=== PATIENT | female | born 2000 | race African-American/Black ===

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

== ENCOUNTER 2024-03-11 07:14 | Emergency (ER) | payer BC, MEDICAID ==
[~2024-03-11] VITALS: Ht 177.8 cm; Wt 70.0 kg
[2024-03-11 07:17] VITALS: O2SAT 99
[2024-03-11] MEDS: ONDANSETRON HCL 4MG/2ML INJ IV ONE (08:15)
[2024-03-11] MEDS: SODIUM CHLORIDE 0.9% 1,000 ML IV ONE (08:15)
[2024-03-11] MEDS: KETOROLAC 30MG/ML VIAL IV ONE (08:15)
[2024-03-11 08:17] LABS: BASOPHILS % 0.5 % (0.0-2.0); DIFFERENTIAL COMMENT 0; EOSINOPHILS % 0.4 % (0.0-5.0); HEMATOCRIT. 32.3 % (36.0-48.0); HEMOGLOBIN. 10.1 g/dL (12.0-16.0); LYMPHOCYTES % 28.5 % (20.0-50.0); MEAN CORPUSCULAR HEMOGLOBIN 24.6 pg (28.0-32.0); MEAN CORPUSCULAR HGB CONC 31.2 g/dL (31.0-37.0); MEAN CORPUSCULAR VOLUME 78.7 fL (81.0-99.0); MONOCYTES % 6.7 % (2.0-8.0); NEUTROPHILS % 63.9 % (40.0-76.0); PLATELET 292 x1000/uL (130-400); RED CELL DISTRIBUTION WIDTH 15.5 % (11.6-14.6); WHITE BLOOD COUNT 6.8 x1000/uL (4.5-11.0)
[2024-03-11 08:38] LABS: ALANINE AMINOTRANSFERASE 17 IU/L (10-49); ALBUMIN 4.4 g/dL (3.2-4.8); ASPARTATE AMINOTRANSFERASE 24 IU/L (<34); BILIRUBIN TOTAL 0.2 mg/dL (0.1-1.0); CALCIUM 9.6 mg/dL (8.7-10.4); CARBON DIOXIDE 23 mEq/L (21-32); CHLORIDE 110 mEq/L (98-107); CREATININE 0.8 mg/dL (0.6-1.0); GLUCOSE 100 mg/dL (70-105); POTASSIUM 3.2 mEq/L (3.5-5.1); PROTEIN TOTAL 7.5 g/dL (6.0-8.3); SODIUM 139 mEq/L (136-145); UREA NITROGEN BLOOD 17 mg/dL (9-23)
[2024-03-11 08:39] LABS: CLARITY URINE CLOUDY (CLEAR); COLOR URINE YELLOW (YELLOW); GLUCOSE URINE NEGATIVE (NEGATIVE); KETONES URINE TRACE (NEGATIVE); LEUKOCYTE ESTERASE URINE NEGATIVE (NEGATIVE); NITRITE URINE NEGATIVE (NEGATIVE); OCCULT BLOOD URINE NEGATIVE (NEGATIVE); PROTEIN URINE TRACE (NEGATIVE)
[2024-03-11] MEDS ORDERED: CEFTRIAXONE SODIUM 500MG VIAL IM ONE (08:45)
[2024-03-11] MEDS ORDERED: DOXYCYCLINE HYCLATE 100MG CAPSULE PO ONE (08:45)
[2024-03-11 08:51] LABS: MUCUS URINE 3+ /lpf (< = 2+); SQUAMOUS EPITHELIAL CELL URINE 3+ /lpf (RARE/1+)
[2024-03-11 08:52] LABS: BACTERIA URINE TRACE; RBC URINE 0-2 /hpf (0-2); WBC URINE 0-2 /hpf (0-2)
[2024-03-11] MEDS ORDERED: TOPUD PO (10:42)
[2024-03-11] MEDS ORDERED: DOXY100T28 PO (10:42)
[2024-03-11] MEDS ORDERED: ONDA4TAB50 PO (10:42)
[2024-03-11] MEDS: CEFTRIAXONE SODIUM 500MG VIAL IM SCH (11:57)
[2024-03-11] MEDS: DOXYCYCLINE HYCLATE 100MG CAPSULE PO SCH (11:57)
[2024-03-11 12:09] VITALS: BP 119/75; PULSE 65; RESP 14; TEMP 98.1
== END 2024-03-11 12:09 | disposition home or self-care (01) ==
LOC: ER 07:14
DX: R10.9 Unspecified abdominal pain (principal); R11.2 Nausea with vomiting, unspecified; R51.9 Headache, unspecified
CPT/HCPCS: 80053; 81003; 84702; 83690; 85025; 86850; 86900; 86901; 36415; 76830; 76856; 96361; 96372; 96374; 96375; 99285; J0696; J1885; J2405; J7030; Z7610 ×3

== ENCOUNTER 2024-12-03 05:20 | Emergency (ER) | payer MEDICAID ==
[~2024-12-03] VITALS: Ht 170.2 cm; Wt 180.0 kg
[~2024-12-03 05:20] MED LIST: DOXY100T28 PO; ONDA4TAB50 PO; TOPUD PO
[2024-12-03 05:22] VITALS: BP 122/77; PULSE 98; RESP 18; O2SAT 100
[2024-12-03 06:23] VITALS: TEMP 98.8
[2024-12-03] MEDS: ACETAMINOPHEN 325MG TABLET PO STA (06:23)
[2024-12-03] MEDS: ONDANSETRON 4MG ODT PO ONE (06:23)
[2024-12-03 06:44] LABS: CHLORIDE 111 mEq/L (98-107); POTASSIUM 3.2 mEq/L (3.5-5.1); SODIUM 141 mEq/L (136-145)
[2024-12-03 06:45] LABS: CARBON DIOXIDE 19 mEq/L (21-32)
[2024-12-03 06:46] LABS: CALCIUM 9.6 mg/dL (8.7-10.4)
[2024-12-03 06:50] LABS: CREATININE 0.8 mg/dL (0.6-1.0); GLUCOSE 122 mg/dL (70-105); UREA NITROGEN BLOOD 11 mg/dL (9-23)
[2024-12-03 07:12] LABS: HEMATOCRIT. 37.2 % (36.0-48.0); HEMOGLOBIN. 12.2 g/dL (12.0-16.0); MEAN CORPUSCULAR HEMOGLOBIN 27.2 pg (28.0-32.0); MEAN CORPUSCULAR HGB CONC 32.6 g/dL (31.0-37.0); MEAN CORPUSCULAR VOLUME 83.4 fL (81.0-99.0); PLATELET 242 x1000/uL (130-400); RED BLOOD CELL COUNT 4.46 mill/uL (4.2-5.4); RED CELL DISTRIBUTION WIDTH 14.2 % (11.6-14.6); WHITE BLOOD COUNT 8.8 x1000/uL (4.5-11.0)
[2024-12-03 07:21] LABS: HCG SCREEN NEGATIVE
[2024-12-03 07:22] LABS: DIFFERENTIAL COMMENT 1
[2024-12-03] MEDS: SODIUM CHLORIDE 0.9% 1,000 ML IV ONE (07:45)
[2024-12-03 19:13] LABS: PLATELET ESTIMATE NORMAL
== END 2024-12-03 09:48 | disposition home or self-care (01) ==
LOC: ER 05:37
DX: U07.1 COVID-19 (principal); Z20.822 Contact with and (suspected) exposure to COVID-19
CPT/HCPCS: 99284; 71045; 87426; 80048; 84703; 85025; 87804 ×2; 36415; Q0162; J7030